=== PATIENT | female | born 1940 | race Caucasian/White ===

== ENCOUNTER 2022-12-06 09:52 | Inpatient (IN) | payer MEDICARE, OTHER ==
[~2022-12-06] VITALS: Ht 166.4 cm; Wt 47.2 kg
[~2022-12-06 09:52] MED LIST: CELEBREX200 MG; DORZOLAMIDE HCL10 ML OD; FOLIC ACID1 MG; GLUCOSAMINE1000 MG; GLYCOTROL CAPS1 EACH; LIBRAX CAPSULE1 EACH; METABO-EPHEDRA1 EACH; MULTI-VITAMIN1 EACH PO; OSTERA TABLET1 EACH; PREVACID30 MG; REQUIP PO; REQUIP1 MG; SYNTHROID75 MCG PO; TIMOPTIC 0.5%1 EACH OD; VERAPAMIL HCL40 MG; VITAMIN D3250 MC1 PO; VITAMIN E400 UNI1 PO
[2022-12-06] MEDS ORDERED: SODIUM CHLORIDE 0.9% 1000ML 1,000 ML IV STA (10:25)
[2022-12-06] MEDS ORDERED: ONDANSETRON HCL INJ 2MG/ML 2ML 2 MG/ML VIAL IV STA (10:35)
[2022-12-06] MEDS ORDERED: MECLIZINE HCL 12.5 MG TAB PO ONE (10:40)
[2022-12-06 10:44] LABS: BASOPHILS % 0.4 % (0.0-1.0); EOSINOPHILS # (AUTO) 0.1 (0.0-0.4); EOSINOPHILS % 0.7 % (0.0-6.0); HEMATOCRIT 27.9 % (34.2-44.1); HEMOGLOBIN 9.1 g/dL (12.0-16.0); LYMPHOCYTES # (AUTO) 1.9 (1.0-3.2); LYMPHOCYTES % 27.5 % (18.0-39.1); MEAN CORPUSCULAR HEMOGLOBIN 32.4 pg (28-32); MEAN CORPUSCULAR HGB CONC 32.6 g/dL (31-35); MEAN CORPUSCULAR VOLUME 99.3 fL (81-99); MONOCYTES # (AUTO) 0.6 (0.2-0.8); MONOCYTES % 8.4 % (4.4-11.3); NEUTROPHILS # (AUTO) 4.2 (2.1-6.9); NEUTROPHILS % 62.6 % (38.7-80.0); PLATELET COUNT 146 x10e3/uL (140-360); RED BLOOD COUNT 2.81 x10e6/uL (3.6-5.1); RED CELL DISTRIBUTION WIDTH 13.3 % (11.7-14.4)
[2022-12-06] MEDS ORDERED: ROPINIROLE HCL 1 MG TAB PO ONE (10:45)
[2022-12-06 10:53] LABS: CLARITY,URINE CLEAR (CLEAR); COLOR,URINE YELLOW (YELLOW); KETONES,URINE NEGATIVE (NEGATIVE); LEUKOCYTE ESTERASE ,URINE NEGATIVE (NEGATIVE); NITRITE,URINE NEGATIVE (NEGATIVE); PROTEIN,URINE DIPSTICK NEGATIVE (NEGATIVE); URINE UROBILINOGEN 0.2 mg/dL (0.2 - 1)
[2022-12-06 10:55] LABS: INR 1.05; PROTHROMBIN TIME 13.9 seconds (11.9-14.5)
[2022-12-06 10:56] LABS: PARTIAL THROMBOPLASTIN TIME 29.7 seconds (23.8-35.5)
[2022-12-06 10:58] LABS: WBC,URINE (MAN) 0-5 /HPF (0-5)
[2022-12-06 10:59] LABS: BACTERIA,URINE FEW /HPF; EPITHELIAL CELLS,URINE RARE /LPF
[2022-12-06 11:05] LABS: ALBUMIN 2.8 g/dL (3.5-5.0); ALBUMIN/GLOBULIN RATIO 1.3 (0.8-2.0); ANION GAP 11.3 mmol/L (8-16); CALCIUM 8.1 mg/dL (8.4-10.2); CREATININE, SERUM 0.73 mg/dL (0.57-1.11); MAGNESIUM 1.9 MG/DL (1.3-2.1); POTASSIUM 4.3 mmol/L (3.5-5.1)
[2022-12-06 11:12] LABS: CREATINE KINASE MB 2.6 ng/mL (0-5.0)
[2022-12-06] MEDS ORDERED: MECLIZINE HCL 12.5 MG TAB PO PRN (13:00)
[2022-12-06] MEDS ORDERED: ONDANSETRON HCL INJ 2MG/ML 2ML 2 MG/ML VIAL IV PRN (13:00)
[2022-12-06] MEDS: SODIUM CHLORIDE 0.9% 1000ML 1,000 ML IV SCH (13:11)
[2022-12-06 14:33] LABS: BASOPHILS % 0.4 % (0.0-1.0); EOSINOPHILS % 0.8 % (0.0-6.0); HEMATOCRIT 23.4 % (34.2-44.1); HEMOGLOBIN 7.3 g/dL (12.0-16.0); LYMPHOCYTES # (AUTO) 1.8 (1.0-3.2); LYMPHOCYTES % 33.2 % (18.0-39.1); MEAN CORPUSCULAR HEMOGLOBIN 32.2 pg (28-32); MEAN CORPUSCULAR HGB CONC 31.2 g/dL (31-35); MEAN CORPUSCULAR VOLUME 103.1 fL (81-99); MONOCYTES # (AUTO) 0.7 (0.2-0.8); MONOCYTES % 12.3 % (4.4-11.3); NEUTROPHILS # (AUTO) 2.8 (2.1-6.9); NEUTROPHILS % 52.9 % (38.7-80.0); PLATELET COUNT 118 x10e3/uL (140-360); RED BLOOD COUNT 2.27 x10e6/uL (3.6-5.1); RED CELL DISTRIBUTION WIDTH 13.5 % (11.7-14.4)
[2022-12-06 17:25] VITALS: BP 108/43
[2022-12-06 17:37] VITALS: BP 108/43
[2022-12-06 17:39] VITALS: BP 108/43
[2022-12-06] MEDS ORDERED: LATANOPROST2.5 ML OP (18:20)
[2022-12-06] MEDS ORDERED: ROPINIROLE HCL2 MG PO (18:20)
[2022-12-06 21:00] VITALS: BP 87/51
[2022-12-07] VITALS (7 sets, daily range): BP systolic 87–106; BP diastolic 48–56
[2022-12-07] MEDS: SODIUM CHLORIDE 0.9% 1000ML 1,000 ML IV SCH ×4 (01:57→20:54)
[2022-12-07 06:21] LABS: BASOPHILS % 0.4 % (0.0-1.0); EOSINOPHILS # (AUTO) 0.1 (0.0-0.4); EOSINOPHILS % 2.7 % (0.0-6.0); HEMATOCRIT 25.3 % (34.2-44.1); HEMOGLOBIN 8.6 g/dL (12.0-16.0); LYMPHOCYTES # (AUTO) 1.5 (1.0-3.2); LYMPHOCYTES % 28.1 % (18.0-39.1); MEAN CORPUSCULAR VOLUME 96.9 fL (81-99); MONOCYTES # (AUTO) 0.7 (0.2-0.8); MONOCYTES % 12.8 % (4.4-11.3); NEUTROPHILS # (AUTO) 2.9 (2.1-6.9); NEUTROPHILS % 55.6 % (38.7-80.0); PLATELET COUNT 95 x10e3/uL (140-360); RED BLOOD COUNT 2.61 x10e6/uL (3.6-5.1); RED CELL DISTRIBUTION WIDTH 16.9 % (11.7-14.4)
[2022-12-07 06:32] LABS: ALBUMIN 2.1 g/dL (3.5-5.0); ALBUMIN/GLOBULIN RATIO 1.2 (0.8-2.0); ANION GAP 6.9 mmol/L (8-16); CALCIUM 7.5 mg/dL (8.4-10.2); CREATININE, SERUM 0.66 mg/dL (0.57-1.11); POTASSIUM 3.9 mmol/L (3.5-5.1)
[2022-12-07 07:21] LABS: CREATINE KINASE MB 1.9 ng/mL (0-5.0)
[2022-12-07 13:53] LABS: BASOPHILS % 0.6 % (0.0-1.0); EOSINOPHILS # (AUTO) 0.2 (0.0-0.4); EOSINOPHILS % 3.2 % (0.0-6.0); LYMPHOCYTES # (AUTO) 1.4 (1.0-3.2); LYMPHOCYTES % 29.9 % (18.0-39.1); MEAN CORPUSCULAR HEMOGLOBIN 30.5 pg (28-32); MEAN CORPUSCULAR HGB CONC 32.1 g/dL (31-35); MEAN CORPUSCULAR VOLUME 94.9 fL (81-99); MONOCYTES # (AUTO) 0.5 (0.2-0.8); MONOCYTES % 11.3 % (4.4-11.3); NEUTROPHILS # (AUTO) 2.5 (2.1-6.9); NEUTROPHILS % 54.1 % (38.7-80.0); PLATELET COUNT 109 x10e3/uL (140-360); RED BLOOD COUNT 2.95 x10e6/uL (3.6-5.1); RED CELL DISTRIBUTION WIDTH 17.2 % (11.7-14.4)
[2022-12-08] VITALS (9 sets, daily range): BP systolic 90–101; BP diastolic 42–50
[2022-12-08 01:30] LABS: % IRON SATURATION 44 % (15-50); IRON 123 ug/dL (50-170); TOTAL IRON BINDING CAPACITY 281 ug/dL (261-478); TRANSFERRIN 201 mg/dL (180-382)
[2022-12-08 06:06] LABS: BASOPHILS % 0.5 % (0.0-1.0); EOSINOPHILS # (AUTO) 0.3 (0.0-0.4); EOSINOPHILS % 4.7 % (0.0-6.0); HEMOGLOBIN 8.6 g/dL (12.0-16.0); LYMPHOCYTES # (AUTO) 1.4 (1.0-3.2); LYMPHOCYTES % 25.9 % (18.0-39.1); MEAN CORPUSCULAR HEMOGLOBIN 30.5 pg (28-32); MEAN CORPUSCULAR HGB CONC 31.9 g/dL (31-35); MEAN CORPUSCULAR VOLUME 95.7 fL (81-99); MONOCYTES # (AUTO) 0.7 (0.2-0.8); MONOCYTES % 12.9 % (4.4-11.3); NEUTROPHILS # (AUTO) 3.1 (2.1-6.9); NEUTROPHILS % 55.5 % (38.7-80.0); PLATELET COUNT 101 x10e3/uL (140-360); RED BLOOD COUNT 2.82 x10e6/uL (3.6-5.1); RED CELL DISTRIBUTION WIDTH 16.8 % (11.7-14.4)
[2022-12-08 06:37] LABS: ANION GAP 7.3 mmol/L (8-16); CALCIUM 7.7 mg/dL (8.4-10.2); CREATININE, SERUM 0.58 mg/dL (0.57-1.11); POTASSIUM 3.3 mmol/L (3.5-5.1)
[2022-12-08] MEDS ORDERED: GUAIFENESIN/CODEINE 5 ML LIQD PO PRN (07:45)
[2022-12-08] MEDS ORDERED: ASPIRIN 81 MG CHEW TAB PO ONE (07:45)
[2022-12-08 08:26] LABS: CREATINE KINASE MB 1.7 ng/mL (0-5.0)
[2022-12-08] MEDS: ACETAMINOPHEN 325 MG TAB PO PRN ×2 (08:33→14:44)
[2022-12-08] MEDS: TIMOLOL MALEATE 0.5% OPTH DRP 5 ML BTL OD SCH ×2 (08:40→17:00)
[2022-12-08] MEDS: DORZOLAMIDE HCL (OPTH) 10 ML BOTTLE OP SCH ×2 (08:41→17:00)
[2022-12-08] MEDS: GUAIFENESIN 200 MG/10 ML UDC PO PRN ×2 (08:41→14:44)
[2022-12-08] MEDS: SODIUM CHLORIDE 0.9% 1000ML 1,000 ML IV SCH (10:22)
[2022-12-08] MEDS ORDERED: POTASSIUM CHLORIDE 20MEQ/100ML 100 ML IV ONE ×2 (11:00→13:00)
[2022-12-08] MEDS: ROPINIROLE HCL 1 MG TAB PO SCH ×2 (13:08→17:30)
[2022-12-08 14:18] LABS: BASOPHILS % 0.5 % (0.0-1.0); EOSINOPHILS # (AUTO) 0.2 (0.0-0.4); EOSINOPHILS % 4.1 % (0.0-6.0); HEMATOCRIT 26.4 % (34.2-44.1); HEMOGLOBIN 8.4 g/dL (12.0-16.0); LYMPHOCYTES % 23.5 % (18.0-39.1); MEAN CORPUSCULAR HEMOGLOBIN 30.9 pg (28-32); MEAN CORPUSCULAR HGB CONC 31.8 g/dL (31-35); MEAN CORPUSCULAR VOLUME 97.1 fL (81-99); MONOCYTES # (AUTO) 0.5 (0.2-0.8); MONOCYTES % 11.1 % (4.4-11.3); NEUTROPHILS # (AUTO) 2.6 (2.1-6.9); NEUTROPHILS % 60.6 % (38.7-80.0); PLATELET COUNT 104 x10e3/uL (140-360); RED BLOOD COUNT 2.72 x10e6/uL (3.6-5.1); RED CELL DISTRIBUTION WIDTH 16.6 % (11.7-14.4)
[2022-12-08] MEDS ORDERED: FUROSEMIDE INJ 10 MG/ML 4 ML VIAL IV PRN (15:45)
[2022-12-08] MEDS ORDERED: ALPRAZOLAM 0.25 MG TAB PO PRN (19:30)
[2022-12-08 20:06] LABS: % IRON SATURATION 19 % (15-50); IRON 41 ug/dL (50-170); TOTAL IRON BINDING CAPACITY 221 ug/dL (261-478); TRANSFERRIN 158 mg/dL (180-382)
[2022-12-08 20:19] LABS: BASOPHILS % 0.7 % (0.0-1.0); EOSINOPHILS # (AUTO) 0.3 (0.0-0.4); EOSINOPHILS % 5.5 % (0.0-6.0); HEMATOCRIT 26.9 % (34.2-44.1); HEMOGLOBIN 8.5 g/dL (12.0-16.0); LYMPHOCYTES # (AUTO) 1.1 (1.0-3.2); LYMPHOCYTES % 24.6 % (18.0-39.1); MEAN CORPUSCULAR HEMOGLOBIN 30.4 pg (28-32); MEAN CORPUSCULAR HGB CONC 31.6 g/dL (31-35); MEAN CORPUSCULAR VOLUME 96.1 fL (81-99); MONOCYTES # (AUTO) 0.7 (0.2-0.8); MONOCYTES % 16.2 % (4.4-11.3); NEUTROPHILS # (AUTO) 2.4 (2.1-6.9); NEUTROPHILS % 52.8 % (38.7-80.0); PLATELET COUNT 111 x10e3/uL (140-360); RED CELL DISTRIBUTION WIDTH 16.4 % (11.7-14.4)
[2022-12-08] MEDS: LATANOPROST(OPTH) 2.5 ML BTL OP SCH (21:00)
[2022-12-08] MEDS: ROPINIROLE HCL 2 MG TAB PO SCH (21:33)
[2022-12-09] VITALS (9 sets, daily range): BP systolic 98–110; BP diastolic 42–62
[2022-12-09] MEDS: ACETAMINOPHEN 325 MG TAB PO PRN (03:05)
[2022-12-09] MEDS: SODIUM CHLORIDE 0.9% 1000ML 1,000 ML IV SCH ×3 (03:09→23:30)
[2022-12-09] MEDS: TIMOLOL MALEATE 0.5% OPTH DRP 5 ML BTL OD SCH ×2 (08:07→12:26)
[2022-12-09] MEDS: DORZOLAMIDE HCL (OPTH) 10 ML BOTTLE OP SCH ×2 (08:07→17:00)
[2022-12-09] MEDS: ROPINIROLE HCL 1 MG TAB PO SCH ×3 (09:00→17:12)
[2022-12-09] MEDS ORDERED: PROPOFOL IV EMULSION 10 MG/ML 20 ML VIAL ONE (13:24)
[2022-12-09] MEDS ORDERED: LIDOCAINE HCL 2% LOCAL INJ 5 ML SDV VIAL INJ ONE (13:24)
[2022-12-09] MEDS ORDERED: FENTANYL CITRATE/PF 100MCG/2 ML INJ ONE (13:27)
[2022-12-09] MEDS ORDERED: METOCLOPRAMIDE HCL 10 MG/2ML VIAL ONE (16:37)
[2022-12-09] MEDS: LATANOPROST(OPTH) 2.5 ML BTL OP SCH (21:00)
[2022-12-09] MEDS: ROPINIROLE HCL 2 MG TAB PO SCH (23:30)
[2022-12-10] VITALS: BP 96/50
[2022-12-10 04:00] VITALS: BP 99/50
[2022-12-10] MEDS: TIMOLOL MALEATE 0.5% OPTH DRP 5 ML BTL OD SCH ×2 (08:09→16:34)
[2022-12-10] MEDS: ROPINIROLE HCL 1 MG TAB PO SCH ×3 (08:09→16:34)
[2022-12-10] MEDS: DORZOLAMIDE HCL (OPTH) 10 ML BOTTLE OP SCH ×2 (08:09→16:34)
[2022-12-10 08:19] VITALS: BP 111/57
[2022-12-10 08:30] VITALS: BP 111/57
[2022-12-10 11:17] VITALS: BP 109/56
[2022-12-10] MEDS: SODIUM CHLORIDE 0.9% 1000ML 1,000 ML IV SCH (14:40)
[2022-12-10 16:36] VITALS: BP 143/64
[2022-12-10 18:52] LABS: HEMATOCRIT 32.7 % (34.2-44.1); HEMOGLOBIN 10.6 g/dL (12.0-16.0)
== END 2022-12-10 21:30 | disposition home or self-care (01) | DRG 384 ==
LOC: ER 10:07 → ERHOLD 13:02 → MED/SURG3 17:09
PROVIDERS: ADMIT Family Medicine; ATTEND Family Medicine
PROC: 30233N1 Transfusion of Nonautologous Red Blood Cells into Peripheral Vein, Percutaneous Approach (ICD-10-PCS; principal; 2022-12-06)
PROC: 0DB78ZX Excision of Stomach, Pylorus, Via Natural or Artificial Opening Endoscopic, Diagnostic (ICD-10-PCS; 2022-12-09)
DX: K25.7 Chronic gastric ulcer without hemorrhage or perforation (principal); D62 Acute posthemorrhagic anemia; E44.0 Moderate protein-calorie malnutrition; Z68.1 Body mass index [BMI] 19.9 or less, adult; I10 Essential (primary) hypertension; E03.9 Hypothyroidism, unspecified; M54.9 Dorsalgia, unspecified; G89.29 Other chronic pain; I25.2 Old myocardial infarction; K58.9 Irritable bowel syndrome, unspecified; G25.81 Restless legs syndrome; I25.10 Atherosclerotic heart disease of native coronary artery without angina pectoris; M06.9 Rheumatoid arthritis, unspecified; K44.9 Diaphragmatic hernia without obstruction or gangrene; K21.00 Gastro-esophageal reflux disease with esophagitis, without bleeding; H40.10X0 Unspecified open-angle glaucoma, stage unspecified; Z20.822 Contact with and (suspected) exposure to COVID-19; Z88.0 Allergy status to penicillin
CPT/HCPCS: 36415; 43450; 70450; 71045; 74018; 80048; 80053; 81001; 82270; 82550; 82553; 82607; 82746; 83540; 83735; 83880; 84466; 84484; 85014; 85018; 85025; 85045; 85610; 85730; 86850; 86900; 86920; 87086; 88305; 88312; 88342; 93005; 93306; 96361; 99252; 99284; J2001; J2405; J2765; J3010; J3480; J7030; P9016